=== PATIENT | female | born 1935 | race Caucasian/White ===

== ENCOUNTER 2017-01-09 20:25 | Inpatient (IN) | payer MEDICARE, OTHER ==
[~2017-01-09] VITALS: Ht 157.5 cm; Wt 63.5 kg
[2017-01-09] MEDS ORDERED: CLON0.2T PO (20:56)
[2017-01-09] MEDS ORDERED: SERT25TA PO (20:56)
[2017-01-09] MEDS ORDERED: ACET325T53 PO (20:56)
[2017-01-09] MEDS ORDERED: FAMO20TA8 PO (20:56)
[2017-01-09] MEDS ORDERED: DOCU100C36 PO (20:56)
[2017-01-09] MEDS ORDERED: BISA10SU8 RC (20:56)
[2017-01-09] MEDS ORDERED: ATOR20TA PO (20:56)
[2017-01-09] MEDS ORDERED: LORA0.5T PO (20:56)
[2017-01-09] MEDS ORDERED: HYDR-3974 PO (20:56)
[2017-01-09] MEDS ORDERED: DEXT1CAP3 PO (20:56)
[2017-01-09] MEDS ORDERED: ONDA4TAB8 PO (20:56)
[2017-01-09] MEDS ORDERED: AMLO5TAB2 PO (20:56)
[2017-01-09] MEDS ORDERED: ZOLP5TAB8 PO (20:56)
[2017-01-09] MEDS ORDERED: CARV12.52 PO (20:56)
[2017-01-09] MEDS ORDERED: CLOP75TA15 PO (20:56)
[2017-01-09] MEDS ORDERED: HYDR-4209 PO (20:56)
[2017-01-09] MEDS ORDERED: MAGN400T6 PO (20:56)
[2017-01-09] MEDS ORDERED: LACT1CAP7 PO (20:56)
[2017-01-09 21:20] LABS: BASOPHILS % (AUTO) 0.4 % (0.0-2.0); EOSINOPHILS # (AUTO) 0.4 K/uL (0.0-0.7); EOSINOPHILS % (AUTO) 5.6 % (0.0-7.0); HEMOGLOBIN 11.9 G/DL (12.0-16.0); LYMPHOCYTES # (AUTO) 1.6 K/UL (0.8-4.8); LYMPHOCYTES % (AUTO) 24.9 % (20.5-51.5); MEAN CORPUSCULAR HEMOGLOBIN 27.6 UUG (27.0-31.0); MEAN CORPUSCULAR HGB CONC 32 g/dL (32.0-37.0); MEAN CORPUSCULAR VOLUME 85.7 FL (81.0-99.0); MONOCYTES # (AUTO) 0.7 K/UL (0.1-1.30); MONOCYTES % (AUTO) 11.4 % (0.0-11.0); NEUTROPHILS # (AUTO) 3.7 K/UL (1.8-8.9); NEUTROPHILS % (AUTO) 57.7 % (38.5-71.5); PLATELET COUNT (AUTO) 144 K/UL (150-450); RED BLOOD CELL COUNT(AUTO) 4.32 MIL/UL (4.2-5.4); WHITE BLOOD COUNT (AUTO) 6.4 K/UL (4.0-11.2)
[2017-01-09 21:24] LABS: CARBON DIOXIDE 30 mmol/L (21-32); CHLORIDE 99 mmol/L (98-107); CREATININE 3.5 mg/dL (0.6-1.3); GLUCOSE 143 mg/dL (74-106)
[2017-01-09 21:27] LABS: UREA NITROGEN, BLOOD 81 mg/dL (7-18)
[2017-01-09 21:29] LABS: ALANINE AMINOTRANSFERASE 37 U/L (14-59); ALKALINE PHOSPHATASE 134 U/L (50-136); ASPARTATE AMINOTRANSFERASE 18 U/L (15-37); BILIRUBIN,DIRECT 0.1 mg/dL (0.0-0.2); BILIRUBIN,TOTAL 0.3 mg/dL (0.2-1.0); LIPASE 184 U/L (73-393); TOTAL PROTEIN, SERUM 7.9 g/dL (6.4-8.2)
[2017-01-09 22:44] LABS: *BILIRUBIN,URIN NEGATIVE (NEGATIVE); *BLOOD, URINE Trace-intact (NEGATIVE); *CLARITY,URINE CLEAR (CLEAR); *COLOR,URINE YELLOW (YELLOW); *KETONES,URINE NEGATIVE (NEGATIVE); *PROTEIN,URINE NEGATIVE (NEGATIVE); *UROBILINOGEN,URINE 0.2 E.U./dl (NORMAL); LEUKOCYTE ESTERASE ,URINE NEGATIVE (NEGATIVE); NITRITE, URINE NEGATIVE (NEGATIVE); UGLUCOSE NEGATIVE (NEGATIVE)
[2017-01-09 22:46] LABS: BACTERIA,URINE NONE SEEN /HPF (NONE SEEN); RBC,URINE 0-3 /HPF (0-3); SQUAMOUS EPITHELIAL CELL,UR FEW /HPF (NONE SEEN); WBC,URINE 0-3 /HPF (0-3)
--- NOTE | 2017-01-09 22:47 | NUR ---
Report given to Felicitas HUERTA
--- NOTE | 2017-01-09 22:48 | NUR ---
Call placed to [facility], Dr. De La Fuente will be paged.
--- NOTE | 2017-01-09 22:49 | NUR ---
CHARLENE speaking with Dr. De La Fuente.
--- NOTE | 2017-01-09 23:25 | NUR ---
PT RECEIVED FROM ED VIA [facility]. DEMETRIUS SPEAKING. A/OX1. ORIENTED TO ROOM. V/S STABLE. IN NO ACUTE DISTRESS. NO S/S OF PAIN AT THIS TIME. IV INTACT AND PATENT. SINUS 62 ON THE TELE MONITOR. SAFETY MEASURES. IMPLEMENTED. BED ALARM SET. CALL LIGHT WITHIN REACH. WILL CONT TO MONITOR.
--- NOTE | 2017-01-09 23:51 | NUR ---
Pt. admitted to Telemetry , under care of Dr. Garfield De La Fuente. Dx: Acute Kidney Injury/Weakness Belongs List completed
[2017-01-10 00:12] VITALS: BP 152/71
[2017-01-10 05:30] VITALS: BP 139/62
--- NOTE | 2017-01-10 06:45 | NUR ---
END OF SHIFT NOTES. PT SLEPT WELL THROUGHOUT SHIFT. IN STABLE CONDITION. IVF INFUSING. SINUS RHYTHM ON THE TELE MONITOR. ISOLATION IN PLACE SAFETY PRECAUTION FOR GENERALIZED SKIN RASH. ALL NEEDS ATTENDED. SAFETY MAINTAINED. BED ALARM SET. CALL LIGHT WITHIN REACH.
[2017-01-10 11:08] VITALS: BP 148/78
[2017-01-10 15:08] VITALS: BP 106/52
--- NOTE | 2017-01-10 19:00 | NUR ---
Received pt resting comfortably in bed. Farsi speaking. Vitals signs WNL. IV site intact and patent. No acute distress noted. Safety measures maintained. Call light within reach. Will continue to monitor.
[2017-01-10 20:14] VITALS: BP 125/65
--- NOTE | 2017-01-10 23:30 | NUR ---
Pt had an episode of anxiety. Raised HOB to facilitate breathing. Instructed pt breathing techniques. Started to calm down but still anxious. Administered Ativan for anxiety as prescribed. Safety measures maintained. Will continue to monitor.
[2017-01-11 00:20] VITALS: BP 147/75
[2017-01-11 04:00] VITALS: BP 143/70
--- NOTE | 2017-01-11 06:12 | NUR ---
Pt slept comfortably t/o the night. VS WNL. No acute distress noted. No c/o pain. All needs attended t/o the night. Safety measures maintained. Call light within reach. Will continue to monitor.
[2017-01-11 06:31] LABS: BASOPHILS % (AUTO) 0.3 % (0.0-2.0); EOSINOPHILS # (AUTO) 0.3 K/uL (0.0-0.7); EOSINOPHILS % (AUTO) 5.7 % (0.0-7.0); HEMATOCRIT 34.5 % (37-47); HEMOGLOBIN 11.3 G/DL (12.0-16.0); LYMPHOCYTES # (AUTO) 1.7 K/UL (0.8-4.8); LYMPHOCYTES % (AUTO) 28.5 % (20.5-51.5); MEAN CORPUSCULAR HEMOGLOBIN 28.4 UUG (27.0-31.0); MEAN CORPUSCULAR HGB CONC 33 g/dL (32.0-37.0); MEAN CORPUSCULAR VOLUME 86.2 FL (81.0-99.0); MONOCYTES # (AUTO) 0.4 K/UL (0.1-1.30); MONOCYTES % (AUTO) 7.2 % (0.0-11.0); NEUTROPHILS # (AUTO) 3.6 K/UL (1.8-8.9); NEUTROPHILS % (AUTO) 58.3 % (38.5-71.5); PLATELET COUNT (AUTO) 135 K/UL (150-450)
[2017-01-11 06:46] LABS: ALANINE AMINOTRANSFERASE 32 U/L (14-59); ALKALINE PHOSPHATASE 120 U/L (50-136); ASPARTATE AMINOTRANSFERASE 17 U/L (15-37); BILIRUBIN,TOTAL 0.3 mg/dL (0.2-1.0); CARBON DIOXIDE 29 mmol/L (21-32); CHLORIDE 107 mmol/L (98-107); CHOLESTEROL 192 mg/dL (<200); GLUCOSE 121 mg/dL (74-106); HDL CHOLESTEROL 40 mg/dL (40-60); MAGNESIUM 2.4 mg/dL (1.8-2.4); PHOSPHOROUS 4.5 mg/dL (2.5-4.9); POTASSIUM 4.3 mmol/L (3.5-5.1); TOTAL PROTEIN, SERUM 7.1 g/dL (6.4-8.2); TRIGLYCERIDES 102 MG/DL (30-150); UREA NITROGEN, BLOOD 65 mg/dL (7-18)
--- NOTE | 2017-01-11 07:00 | NUR ---
Received report from shift mechanic nurse, patient in bed asleep, no evidence of distress noted, bed in low position side rails up x2.
[2017-01-11 07:07] LABS: THYROID STIMULATING HORMONE 2.737 mIU/mL (0.358-3.740)
[2017-01-11 11:14] VITALS: BP 125/69
[2017-01-11 15:14] VITALS: BP 118/67
--- NOTE | 2017-01-11 18:23 | NUR ---
Patient has been cooperative, no reports of pain/SOB/or any other complaints at this time. Bed in low position, side rails up x2.
--- NOTE | 2017-01-11 19:30 | NUR ---
SHIFT REPORT PROVIDED BY PREVIOUS SHIFT NURSE. PATIENT IN STABLE CONDITION, NO SIGNS OF DISTRESS. SAFETY AND COMFORT PROVIDED TO PATIENT.
[2017-01-11 20:00] VITALS: BP 136/69
[2017-01-12 04:36] VITALS: BP 136/73
--- NOTE | 2017-01-12 07:45 | NUR ---
PT BEDSIDE REPORT RECEIVED FROM PATHOLOGY SECRETARY/TRANSCRIPTIONIST HÉCTOR HUERTA. NO APPARENT DISTRESS NOTED AT THIS TIME. ALL SAFETY AND COMFORT MEASURES IMPLEMENTED. WILL CONTINUE TO MONITOR.
--- NOTE | 2017-01-12 08:23 | NUR ---
PT COMPLAINS OF CHEST PAIN. V/S TAKEN 173/86 P 77, O2 SAT 99 ON RA. ASSISTED WITH FARSI TRANSLATION TO ID PAIN LOCATION, AND PLACED STAT NITRO ORDER. MEDICATION ADMINISTERED AT 0833, V/S BP 182/91, P 78, 2 L O2 APPLIED VIA NC O2 SATURATION 98%. REDNESS NOTED ON RIGHT FOREARM RESEMBLING POSSIBLE ALLERGIC REACTION TO ADHESIVE TAPE OVER IV SITE. TAPE REPLACED. SECOND DOSE OF NITRO ADMINISTERED 5 MIN APART ORDERED. 0838 2ND DOSE OF NITRO ADMINISTERED AND VS TAKEN. BP 120/79, 82 PULSE, 99% O2 SAT. WILL CONTINUE TO STAY WITH PT TO MONITOR PROGRESS.
[2017-01-12 08:32] LABS: BASOPHILS % (AUTO) 0.4 % (0.0-2.0); EOSINOPHILS # (AUTO) 0.3 K/uL (0.0-0.7); EOSINOPHILS % (AUTO) 3.9 % (0.0-7.0); HEMATOCRIT 38.5 % (37-47); HEMOGLOBIN 12.5 G/DL (12.0-16.0); LYMPHOCYTES # (AUTO) 1.5 K/UL (0.8-4.8); LYMPHOCYTES % (AUTO) 19.5 % (20.5-51.5); MEAN CORPUSCULAR HEMOGLOBIN 27.6 UUG (27.0-31.0); MEAN CORPUSCULAR HGB CONC 32 g/dL (32.0-37.0); MEAN CORPUSCULAR VOLUME 85.3 FL (81.0-99.0); MONOCYTES # (AUTO) 0.4 K/UL (0.1-1.30); MONOCYTES % (AUTO) 4.8 % (0.0-11.0); NEUTROPHILS # (AUTO) 5.5 K/UL (1.8-8.9); NEUTROPHILS % (AUTO) 71.4 % (38.5-71.5); PLATELET COUNT (AUTO) 149 K/UL (150-450); RED BLOOD CELL COUNT(AUTO) 4.52 MIL/UL (4.2-5.4); WHITE BLOOD COUNT (AUTO) 7.7 K/UL (4.0-11.2)
--- NOTE | 2017-01-12 08:44 | NUR ---
OBSERVED PT DISTRESS REDUCED. TRANSLATION PHONE ATTEMPTED TO BE UTILIZED AGAIN, PT ABLE TO COMMUNICATE PAIN RELIEF PRIOR TO 3RD DOSE OF NITRO ADMINISTRATION. V/S READING 95/49, 87, 98% ON 2 l O2 NC . 12 LEAD EKG PERFORMED AT BEDSIDE. SR NOTED. MORNING MEDICATIONS ADMINISTERED. V/S TAKEN TO BE 107/69, 85, 100% O2 ON 2 L. WILL CONTINUE TO MONITOR AND ENSURE SAFETY MEASURES ARE MET.
[2017-01-12 08:48] LABS: CARBON DIOXIDE 24 mmol/L (21-32); CHLORIDE 107 mmol/L (98-107); CREATININE 2.7 mg/dL (0.6-1.3); GLUCOSE 132 mg/dL (74-106); MAGNESIUM 2.6 mg/dL (1.8-2.4); PHOSPHOROUS 3.1 mg/dL (2.5-4.9); POTASSIUM 5.1 mmol/L (3.5-5.1); UREA NITROGEN, BLOOD 55 mg/dL (7-18)
[2017-01-12 11:46] VITALS: BP 134/70
[2017-01-12] MEDS ORDERED: ACET325T53 PO (12:28)
[2017-01-12] MEDS ORDERED: HYDR-3326 PO (12:28)
[2017-01-12] MEDS ORDERED: BISA10SU12 RC (12:43)
[2017-01-12 15:17] VITALS: BP 121/64
[2017-01-12 20:00] VITALS: BP 141/66
[2017-01-13 04:00] VITALS: BP 151/76
--- NOTE | 2017-01-13 06:00 | NUR ---
PATIENT SLEPT WELL, IN NO ACUTE DISTRESS. PT NO C/O OF SOB OR CHEST PAIN. WILL CONTINUE TO MONITOR. CALL LIGHT WITHIN REACH, BED ALARM ON.
[2017-01-13 07:44] LABS: ALANINE AMINOTRANSFERASE 20 U/L (14-59); ALKALINE PHOSPHATASE 111 U/L (50-136); ASPARTATE AMINOTRANSFERASE 12 U/L (15-37); BILIRUBIN,TOTAL 0.3 mg/dL (0.2-1.0); CARBON DIOXIDE 28 mmol/L (21-32); CHLORIDE 109 mmol/L (98-107); CREATININE 2.6 mg/dL (0.6-1.3); GLUCOSE 123 mg/dL (74-106); MAGNESIUM 2.1 mg/dL (1.8-2.4); PHOSPHOROUS 3.6 mg/dL (2.5-4.9); POTASSIUM 4.4 mmol/L (3.5-5.1); TOTAL PROTEIN, SERUM 6.8 g/dL (6.4-8.2); UREA NITROGEN, BLOOD 47 mg/dL (7-18)
[2017-01-13 07:47] LABS: BASOPHILS % (AUTO) 0.5 % (0.0-2.0); EOSINOPHILS # (AUTO) 0.3 K/uL (0.0-0.7); EOSINOPHILS % (AUTO) 5.2 % (0.0-7.0); HEMATOCRIT 33.6 % (31.2-41.9); HEMOGLOBIN 11.4 g/dL (10.9-14.3); LYMPHOCYTES # (AUTO) 1.6 K/uL (20.0-40.0); MEAN CORPUSCULAR HEMOGLOBIN 29.2 uug (24.7-32.8); MEAN CORPUSCULAR HGB CONC 34 g/dL (32.3-35.6); MEAN CORPUSCULAR VOLUME 86.3 fL (75.5-95.3); MONOCYTES # (AUTO) 0.4 K/uL (2.0-10.0); MONOCYTES % (AUTO) 6.4 % (0.0-11.0); NEUTROPHILS # (AUTO) 3.2 K/uL (1.8-8.9); NEUTROPHILS % (AUTO) 58.9 % (38.5-71.5); PLATELET COUNT (AUTO) 121 K/uL (179-408); RED BLOOD CELL COUNT(AUTO) 3.89 MIL/uL (3.63-4.92)
[2017-01-13 08:00] LABS: WHITE BLOOD COUNT (AUTO) 5.5 K/uL (3.8-11.8)
[2017-01-13 11:14] VITALS: BP 132/66
--- NOTE | 2017-01-13 11:26 | NUR ---
Patient will be discharged to [facility]. Phone number . Family aware and agreeable with plan. Patient will be under the care of Dr. Morales. Dr. Jan Shay has discharge patient and will complete orders.
--- NOTE | 2017-01-13 14:37 | NUR ---
D/C NOTE SET FOR D/C ABMULANCE HERE TO PICK HER UP. [facility]. VSS. REPORT GIVEN TO CLAUDIA HUERTA. HL REMOVED INTACT #20G . PT ASSISTED TO PUT HER CLOTHES ON. SHE LEFT WITH HER CLOTHES ON. DENTURES IN HER MOUTH SKIN INTACT
[2017-01-13 15:12] VITALS: BP 133/76
== END 2017-01-13 14:45 | DRG 682 ==
LOC: ER 20:29 → TELE 23:18 → MED 01-11 14:30
PROVIDERS: ADMIT Nurse Practitioner Acute Care; ATTEND Nurse Practitioner Acute Care
DX: N17.0 Acute kidney failure with tubular necrosis (principal); G93.40 Encephalopathy, unspecified; D68.59 Other primary thrombophilia; E11.22 Type 2 diabetes mellitus with diabetic chronic kidney disease; E11.65 Type 2 diabetes mellitus with hyperglycemia; M84.48XA Pathological fracture, other site, initial encounter for fracture; W06.XXXA Fall from bed, initial encounter; N18.9 Chronic kidney disease, unspecified; E86.0 Dehydration; S09.90XA Unspecified injury of head, initial encounter; I12.9 Hypertensive chronic kidney disease with stage 1 through stage 4 chronic kidney disease, or unspecified chronic kidney disease; Z79.02 Long term (current) use of antithrombotics/antiplatelets; Z79.899 Other long term (current) drug therapy; I69.319 Unspecified symptoms and signs involving cognitive functions following cerebral infarction; F01.50 Vascular dementia, unspecified severity, without behavioral disturbance, psychotic disturbance, mood disturbance, and anxiety; E78.5 Hyperlipidemia, unspecified; J32.8 Other chronic sinusitis; Z74.09 Other reduced mobility; I25.10 Atherosclerotic heart disease of native coronary artery without angina pectoris; Y92.122 Bedroom in nursing home as the place of occurrence of the external cause; K56.41 Fecal impaction; N28.1 Cyst of kidney, acquired; M81.0 Age-related osteoporosis without current pathological fracture; F41.9 Anxiety disorder, unspecified; F32.9 Major depressive disorder, single episode, unspecified; D64.9 Anemia, unspecified; M17.12 Unilateral primary osteoarthritis, left knee
CPT/HCPCS: 36415; 70030-TC; 70450; 71010; 73700; 76770; 83690; 83735; 84100; 84443; 85025; 87086; 93005; A4663; J7030

== ENCOUNTER 2018-10-23 14:01 | Inpatient (IN) | payer MEDICARE, MEDICAID ==
[~2018-10-23] VITALS: Ht 152.4 cm; Wt 45.4 kg
[~2018-10-23 14:01] MED LIST: ACET325T53 PO; AMLO5TAB9 PO; ATOR20TA PO; BISA10SU12 RC; BISA10SU95 RC; CARV12.52 PO; CLON0.2T PO; CLOP75TA15 PO; DEXT1CAP3 PO; DOCU100C36 PO; FAMO20TA8 PO; HYDR-3326 PO; HYDR-4209 PO; LACT1CAP7 PO; LORA0.5T PO; MAGN400T6 PO; ONDA4TAB8 PO; SERT25TA PO; ZOLP5TAB8 PO
--- NOTE | 2018-10-23 14:13 | NUR ---
PT IS IN ROOM #1B. DR SCHMIDT EVALUATED THE PT.
[2018-10-23] MEDS ORDERED: DEXT1CAP3 PO (14:35)
[2018-10-23] MEDS ORDERED: QUET25TA PO (14:35)
[2018-10-23] MEDS ORDERED: OXCA150T5 PO (14:35)
[2018-10-23 15:52] LABS: BASOPHILS # (AUTO) 0.1 K/uL (0.0-8.0); BASOPHILS % (AUTO) 0.9 % (0.0-2.0); EOSINOPHILS # (AUTO) 0.1 K/uL (0.0-0.7); EOSINOPHILS % (AUTO) 1.3 % (0.0-7.0); HEMATOCRIT 39.5 % (31.2-41.9); HEMOGLOBIN 12.7 g/dL (10.9-14.3); LYMPHOCYTES # (AUTO) 1.6 K/uL (20.0-40.0); LYMPHOCYTES % (AUTO) 20.3 % (20.5-51.5); MEAN CORPUSCULAR HGB CONC 32 g/dL (32.3-35.6); MEAN CORPUSCULAR VOLUME 87.1 fL (75.5-95.3); MONOCYTES # (AUTO) 0.4 K/uL (2.0-10.0); MONOCYTES % (AUTO) 5.4 % (0.0-11.0); NEUTROPHILS # (AUTO) 5.9 K/uL (1.8-8.9); NEUTROPHILS % (AUTO) 72.1 % (38.5-71.5); PLATELET COUNT (AUTO) 178 K/uL (179-408); RED BLOOD CELL COUNT(AUTO) 4.54 MIL/uL (3.63-4.92); WHITE BLOOD COUNT (AUTO) 8.1 K/uL (3.8-11.8)
[2018-10-23 15:59] LABS: CARBON DIOXIDE 25 mmol/L (21-32); CHLORIDE 107 mmol/L (98-107); CREATININE 3.3 mg/dL (0.6-1.3); GLUCOSE 276 mg/dL (74-106); POTASSIUM 4.5 mmol/L (3.5-5.1); UREA NITROGEN, BLOOD 79 mg/dL (7-18)
[2018-10-23 16:05] LABS: ALANINE AMINOTRANSFERASE 27 U/L (14-59); ALKALINE PHOSPHATASE 130 U/L (50-136); ASPARTATE AMINOTRANSFERASE 14 U/L (15-37); BILIRUBIN,DIRECT 0.1 mg/dL (0.0-0.2); BILIRUBIN,TOTAL 0.3 mg/dL (0.2-1.0); LIPASE 68 U/L (73-393); TOTAL PROTEIN, SERUM 8.3 g/dL (6.4-8.2)
[2018-10-23] MEDS ORDERED: IV NORMAL SALINE 500 ML BAG IV ONE (17:45)
--- NOTE | 2018-10-23 18:29 | NUR ---
REPORT WAS GIVEN TO MAINTENANCE SCHEDULER. PT WAS TRANSFERED TO ROOM #314.
--- NOTE | 2018-10-23 19:00 | NUR ---
Received patient in bed awake, A&Ox1, Farsi speaking. Great grand nephew at bedside. Past medical hx obtained from family member and also some information were obtained from [facility] papers. Belongings list and belongings brought w/ patient. Heplock gauge #18 on right upper arm, intact and patent. Safety measures initiated, bed is low and locked. Call light within reach. Will continue w/ admission process
[2018-10-23 19:05] VITALS: BP 165/83
[2018-10-23 20:00] VITALS: BP 166/79
[2018-10-24 00:10] VITALS: BP 163/92
[2018-10-24] MEDS ORDERED: CLONIDINE HCL 0.2 MG TABLET PO PRN (00:15)
--- NOTE | 2018-10-24 00:20 | NUR ---
Swallow eval done, noted w/ episode of slight cough but was able to swallow thickened water and pudding. After administering PRN Clonidine, patient was noted w/ more coughing. Will keep patient on NPO, speech and swallow eval in AM. Will continue to monitor
[2018-10-24 04:00] VITALS: BP 143/82
[2018-10-24 05:26] LABS: *BILIRUBIN,URIN NEGATIVE (NEGATIVE); *BLOOD, URINE NEGATIVE (NEGATIVE); *COLOR,URINE YELLOW (YELLOW); *KETONES,URINE NEGATIVE (NEGATIVE); *UROBILINOGEN,URINE 0.2 E.U./dl (NORMAL); LEUKOCYTE ESTERASE ,URINE NEGATIVE (NEGATIVE); NITRITE, URINE NEGATIVE (NEGATIVE); UGLUCOSE NEGATIVE (NEGATIVE)
[2018-10-24 05:28] LABS: *CLARITY,URINE HAZY (CLEAR)
[2018-10-24 05:56] LABS: BACTERIA,URINE NONE SEEN /HPF (NONE SEEN); MUCUS,URINE FEW /LPF (0-FEW); RBC,URINE 0-3 /HPF (0-3); SQUAMOUS EPITHELIAL CELL,UR FEW /HPF (NONE SEEN); URINE AMORPHOUS URATE FEW /HPF; WBC,URINE 0-3 /HPF (0-3)
[2018-10-24 06:17] LABS: CARBON DIOXIDE 26 mmol/L (21-32); CHLORIDE 111 mmol/L (98-107); CREATININE 3.1 mg/dL (0.6-1.3); GLUCOSE 220 mg/dL (74-106); POTASSIUM 4.3 mmol/L (3.5-5.1); UREA NITROGEN, BLOOD 73 mg/dL (7-18)
[2018-10-24 06:31] LABS: THYROID STIMULATING HORMONE 1.402 mIU/mL (0.358-3.740)
--- NOTE | 2018-10-24 06:33 | NUR ---
Patient slept well during shift. No signs of acute distress noted. Neuro checks done Q4H. Straight cath done to get UA. Turned and repositioned Q2H. Safety measures given.
[2018-10-24] MEDS: BLOOD SUGAR DIAGNOSTIC 1 EACH STRIP VI SCH ×4 (06:43→20:29)
[2018-10-24] MEDS: PANTOPRAZOLE SODIUM 40 MG TABLET.DR PO SCH (06:46)
[2018-10-24 06:52] LABS: BASOPHILS % (AUTO) 0.3 % (0.0-2.0); EOSINOPHILS # (AUTO) 0.1 K/uL (0.0-0.7); EOSINOPHILS % (AUTO) 1.5 % (0.0-7.0); HEMATOCRIT 37.1 % (31.2-41.9); HEMOGLOBIN 12.2 g/dL (10.9-14.3); LYMPHOCYTES # (AUTO) 1.3 K/uL (20.0-40.0); LYMPHOCYTES % (AUTO) 19.5 % (20.5-51.5); MEAN CORPUSCULAR HEMOGLOBIN 28.6 uug (24.7-32.8); MEAN CORPUSCULAR HGB CONC 33 g/dL (32.3-35.6); MEAN CORPUSCULAR VOLUME 86.8 fL (75.5-95.3); MONOCYTES # (AUTO) 0.4 K/uL (2.0-10.0); MONOCYTES % (AUTO) 5.8 % (0.0-11.0); NEUTROPHILS % (AUTO) 72.9 % (38.5-71.5); PLATELET COUNT (AUTO) 172 K/uL (179-408); RED BLOOD CELL COUNT(AUTO) 4.27 MIL/uL (3.63-4.92); WHITE BLOOD COUNT (AUTO) 6.9 K/uL (3.8-11.8)
[2018-10-24] MEDS ORDERED: ASPIRIN EC 81 MG TABLET.DR PO SCH (09:00)
[2018-10-24] MEDS ORDERED: DOCUSATE SODIUM 100 MG CAPSULE PO SCH (09:00)
[2018-10-24 11:35] VITALS: BP 152/80
[2018-10-24] MEDS: AMLODIPINE 5 MG TABLET NG SCH (12:02)
[2018-10-24] MEDS: LOSARTAN POTASSIUM 50 MG TABLET NG SCH (12:03)
[2018-10-24] MEDS ORDERED: GLUCERNA 1.2 1000ML LIQUID GT PRN (12:30)
[2018-10-24 14:56] VITALS: BP 123/61
--- NOTE | 2018-10-24 16:55 | NUR ---
NG tube order received. NG tube placed. Chest X-ray ordered to confirm placement. Family visiting assisted translation for understanding purpose and need to keep in place. Will continue to monitor and follow up.
--- NOTE | 2018-10-24 18:59 | NUR ---
Pt received, assessed, AOx1-2, Farsi speaking, able to make needs known. Denies pain or discomfort, no SOB on RA. Neuro checks Q4 done, stroke education provided, signed and placed in chart. Pt seen by ST for swallow evaluation, failed. Pt seen by RESERVATIONS AGENT, new orders received and implemented. Diet changed from NPO status to NGT pending Chest X-ray confirmation of placement. Spoke with family and friend visited at bedside. IV in right arm flushed and patent. VSS. All safety and comfort measures implemented. Call light and personal items placed within reach. Will continue to monitor and endorse to oncoming shift leader
--- NOTE | 2018-10-24 20:00 | NUR ---
Received patient laying in bed. No acute distress noted. Patient is A/O x 2 with periods of confusions, mainly Farsi speaking but able to make needs known. In room air. TELE SR at 77. NGT in place. Tube feeding started. C/O pain in her throat. Tylenol given. Noted scratches in her back. Noted lump on her right upper arm, near armpit. MD is aware. Safety initiated. Call light within reach. Will continue to monitor.
[2018-10-24 20:21] VITALS: BP 150/78
[2018-10-24] MEDS: ACETAMINOPHEN 325 MG TABLET PO PRN (20:29)
[2018-10-24] MEDS ORDERED: ACETAMINOPHEN 325 MG TABLET PO SCH ×2 (21:00)
[2018-10-24] MEDS ORDERED: ATORVASTATIN 10 MG TABLET PO SCH (22:30)
[2018-10-25 00:27] VITALS: BP 154/82
[2018-10-25] MEDS: ACETAMINOPHEN 325 MG TABLET PO PRN (03:42)
[2018-10-25 04:00] VITALS: BP 154/84
[2018-10-25] MEDS ORDERED: ACETAMINOPHEN 325 MG TABLET NG PRN (04:15)
[2018-10-25] MEDS ORDERED: CLONIDINE HCL 0.2 MG TABLET NG PRN (04:15)
[2018-10-25] MEDS: BLOOD SUGAR DIAGNOSTIC 1 EACH STRIP VI SCH ×4 (06:55→23:20)
[2018-10-25] MEDS: PANTOPRAZOLE SODIUM 40 MG TABLET.DR PO SCH (06:55)
--- NOTE | 2018-10-25 07:10 | NUR ---
PATIENT AOX1-2. NEURO CHECKS Q4 HRS. PATIENT HAS RIGHT SIDE WEAKNESS. NG TUBE IN PLACE. NO RESIDUAL. BED IN LOCKED POSITION AND LOW. CALL LIGHT IN REACH. WILL CONTINUE TO MONITOR.
--- NOTE | 2018-10-25 07:41 | NUR ---
No changes t/o shift. Patient c/o pain in the throat. Tylenol given with some relief. Vital signs stable. Remains on room air. Denies SOB and Chest Pain. NGT in place with feeding, Glucerna at 30 cc/hr. Tolerated it well t/o shift. Safety and comfort measures maintained t/o shift. All meds given as ordered. All needs met.
[2018-10-25] MEDS: DOCUSATE SODIUM 100 MG/10 ML LIQUID UDC NG SCH (10:22)
[2018-10-25] MEDS: AMLODIPINE 5 MG TABLET NG SCH (10:23)
[2018-10-25] MEDS: LOSARTAN POTASSIUM 50 MG TABLET NG SCH (10:23)
[2018-10-25] MEDS: ASPIRIN 81 MG TAB.CHEW NG SCH (10:24)
[2018-10-25] MEDS ORDERED: DEXTROSE 50% 50 ML DISP.SYRIN IV PRN (11:15)
[2018-10-25] MEDS ORDERED: CLOPIDOGREL 75 MG TABLET PO SCH (13:15)
[2018-10-25] MEDS: INSULIN REGULAR, HUMAN 300 UNIT/3 ML VIAL SQ PRN ×2 (14:37→23:29)
--- NOTE | 2018-10-25 14:42 | NUR ---
TEXTED DR. BRAVO FOR MRI APPROVAL.
[2018-10-25 15:18] VITALS: BP 160/82
--- NOTE | 2018-10-25 19:00 | NUR ---
REPORT GIVEN TO ONCOMING NURSE. PATIENT IN STABLE CONDITION. ALL NEEDS MET AT THIS TIME.
[2018-10-25 20:00] VITALS: BP 149/90
--- NOTE | 2018-10-25 20:00 | NUR ---
PATIENT RECEIVED AWAKE AND SITTING UP IN BED. NO SIGNS OR SYMPTOMS OF ACUTE DISTRESS OR DISCOMFORT NOTED OR OBSERVED. ALL SAFETY AND FALL PRECAUTION MEASURES ARE IN PLACE. CALL LIGHT AND PERSONAL ITEMS ARE WITHIN REACH AT ALL TIMES. WILL CONTINUE TO MONITOR.
[2018-10-25] MEDS ORDERED: ATORVASTATIN 10 MG TABLET NG SCH (21:00)
--- NOTE | 2018-10-25 23:35 | NUR ---
FSBS AT 2330 WAS 214, NOT 242, WITH THE SAME SLIDING SCALE @ 4 UNITS. SITE CHANGED FROM RIGHT DELTOID TO RIGHT LOWER QUADRANT DUE TO NO BP/NO BLOOD DRAWS ON RIGHT ARM.
[2018-10-26] VITALS (7 sets, daily range): BP systolic 133–168; BP diastolic 76–104
--- NOTE | 2018-10-26 04:18 | NUR ---
Notified by DRY CLEANER HAND that pt's 399 BP is 168/104 HR 108. Gave pt prescribed catapres @ 0.2 mg via ngt. Pt tolerated well. Also provided mouth care.
--- NOTE | 2018-10-26 05:00 | NUR ---
PATIENT SLEPT INTERMITTENTLY THROUGHOUT NIGHT WITH NO S/S OF ACUTE DISTRESS OR DISCOMFORT NOTED OR OBSERVED. PATIENT HAS BEEN NPO SINCE MIDNIGHT EXCEPT FOR ADMINISTRATION OF CATAPRES DUE TO ELEVATED BP. ALL SAFETY AND FALL PRECAUTION MEASURES REMAIN IN PLACE. CALL LIGHT AND PERSONAL ITEMS ARE WITHIN REACH AT ALL TIMES.
[2018-10-26] MEDS: BLOOD SUGAR DIAGNOSTIC 1 EACH STRIP VI SCH ×4 (05:39→17:21)
--- NOTE | 2018-10-26 06:01 | NUR ---
RETAKE OF BP REFLECTS 137/68. CATAPRES EFFECTIVE.
[2018-10-26 06:28] LABS: BASOPHILS % (AUTO) 0.3 % (0.0-2.0); EOSINOPHILS # (AUTO) 0.1 K/uL (0.0-0.7); EOSINOPHILS % (AUTO) 1.2 % (0.0-7.0); HEMATOCRIT 39.3 % (31.2-41.9); HEMOGLOBIN 12.9 g/dL (10.9-14.3); LYMPHOCYTES # (AUTO) 1.3 K/uL (20.0-40.0); LYMPHOCYTES % (AUTO) 14.2 % (20.5-51.5); MEAN CORPUSCULAR HEMOGLOBIN 28.7 uug (24.7-32.8); MEAN CORPUSCULAR HGB CONC 33 g/dL (32.3-35.6); MEAN CORPUSCULAR VOLUME 87.3 fL (75.5-95.3); MONOCYTES # (AUTO) 0.6 K/uL (2.0-10.0); MONOCYTES % (AUTO) 6.4 % (0.0-11.0); NEUTROPHILS # (AUTO) 7.1 K/uL (1.8-8.9); NEUTROPHILS % (AUTO) 77.9 % (38.5-71.5); PLATELET COUNT (AUTO) 203 K/uL (179-408); WHITE BLOOD COUNT (AUTO) 9.2 K/uL (3.8-11.8)
[2018-10-26] MEDS: PANTOPRAZOLE SODIUM 40 MG TABLET.DR PO SCH (06:29)
[2018-10-26 06:49] LABS: ALANINE AMINOTRANSFERASE 60 U/L (14-59); ALKALINE PHOSPHATASE 122 U/L (50-136); ASPARTATE AMINOTRANSFERASE 45 U/L (15-37); BILIRUBIN,TOTAL 0.4 mg/dL (0.2-1.0); CARBON DIOXIDE 26 mmol/L (21-32); CHLORIDE 112 mmol/L (98-107); CREATININE 2.5 mg/dL (0.6-1.3); GLUCOSE 157 mg/dL (74-106); MAGNESIUM 2.5 mg/dL (1.8-2.4); PHOSPHOROUS 3.6 mg/dL (2.5-4.9); TOTAL PROTEIN, SERUM 7.9 g/dL (6.4-8.2); UREA NITROGEN, BLOOD 69 mg/dL (7-18)
[2018-10-26] MEDS ORDERED: SIMETHICONE 40 MG/0.6 ML, 30ML BOTTLE MC ONE (07:27)
[2018-10-26] MEDS ORDERED: IRR STERIL WATER FOR IRR 1000 ML BOTTLE IR ONE (07:27)
[2018-10-26] MEDS ORDERED: IV NORMAL SALINE 1000 ML BAG IV ONE (07:27)
[2018-10-26] MEDS ORDERED: PROPOFOL 200 MG/20 ML BOTTLE IV ONE (07:27)
[2018-10-26] MEDS ORDERED: LIDOCAINE-MPF 2% 5 ML VIAL MC ONE (07:27)
[2018-10-26] MEDS: LOSARTAN POTASSIUM 50 MG TABLET NG SCH (09:39)
[2018-10-26] MEDS: AMLODIPINE 5 MG TABLET NG SCH (09:39)
[2018-10-26] MEDS: ASPIRIN 81 MG TAB.CHEW NG SCH (09:40)
[2018-10-26] MEDS: DOCUSATE SODIUM 100 MG/10 ML LIQUID UDC NG SCH (09:40)
[2018-10-26] MEDS ORDERED: CLINDAMYCIN PHOSPHATE 600 MG/4 ML VIAL ONE (10:56)
[2018-10-26] MEDS ORDERED: IV D5W 1000ML 1,000 ML IV PRN (13:15)
[2018-10-26] MEDS: INSULIN REGULAR, HUMAN 300 UNIT/3 ML VIAL SQ PRN ×2 (13:46→17:15)
[2018-10-26] MEDS: ACETAMINOPHEN 325 MG TABLET GT PRN ×2 (17:40→23:51)
[2018-10-26] MEDS: GLUCERNA 1.2 1000ML LIQUID GT PRN ×2 (18:15→19:49)
--- NOTE | 2018-10-26 19:30 | NUR ---
VERIFIED GT PLACEMENT
--- NOTE | 2018-10-26 19:51 | NUR ---
RECEIVED PATIENT AWAKE IN BED, RESTING COMFORTABLY WITH FAMILY AT BEDSIDE. PATIENT'S FAMILY STATED SHE IS HAVING SOME PAIN FROM PEG PLACEMENT TODAY. I ADVISED I WILL PROVIDE PATIENT PRESCRIBED PAIN RELIEF SOON I CAN, PER ORDER FROM MD. SAFETY AND FALL PRECAUTIONS ARE IN PLACE. CALL LIGHT AND PERSONAL ITEMS ARE WITHIN REACH AT ALL TIMES. WILL CONTINUE TO MONITOR.
[2018-10-26] MEDS: ATORVASTATIN 10 MG TABLET GT SCH (21:11)
--- NOTE | 2018-10-27 | NUR ---
CHECKED GT RESIDUAL, NONE RECEIVED. FLUSHED WITH 30cc WATER AND INCREASED GLUCERNA TO 35cc/HR
[2018-10-27] MEDS: BLOOD SUGAR DIAGNOSTIC 1 EACH STRIP VI SCH ×4 (00:03→17:20)
[2018-10-27] MEDS: INSULIN REGULAR, HUMAN 300 UNIT/3 ML VIAL SQ PRN ×4 (00:06→17:23)
--- NOTE | 2018-10-27 02:59 | NUR ---
CHECKED GT RESIDUAL, NONE RECEIVED. FLUSHED GT WITH 30cc WATER AND INCREASED GLUCERNA TO 40cc/HR. WILL CONTINUE TO MONITOR.
--- NOTE | 2018-10-27 04:00 | NUR ---
NOTIFIED BY BAND SAW FILER THAT PT'S BP IS 156/107. BP IS NOT WITHIN PARAMETERS FOR 0.2mg CLONIDINE. PT IS S/P PEG PLACEMENT AND MAY BE EXPERIENCING PAIN, BUT IS UNABLE TO VERBALIZE. PROVIDED COMFORT MEASURES: LOOSENED ABDOMINAL BINDER, APPLIED ICE PACK, WRAPPED IN WASH CLOTH TO PROTECT SKIN, AND PROVIDED CALM ENVIRONMENT. WILL CONTINUE TO MONITOR.
--- NOTE | 2018-10-27 04:30 | NUR ---
CHECKED GT RESIDUAL NONE FOUND. FLUSHED WITH 30cc WATER AND RESTARTED GLUCERNA AT 45mL/HR.
[2018-10-27 04:59] VITALS: BP 156/103
[2018-10-27] MEDS: PANTOPRAZOLE ORAL SUSPENSION 40 MG SUSPDR.PKT GT SCH (05:35)
[2018-10-27] MEDS: ACETAMINOPHEN 325 MG TABLET GT PRN ×2 (06:17→16:32)
[2018-10-27] MEDS: CLONIDINE HCL 0.2 MG TABLET GT PRN (06:22)
--- NOTE | 2018-10-27 06:25 | NUR ---
COMMUTATOR PRESSER RECHECKED PT'S BP S/P COMFORT MEASURES AND BP IS NOW 170/96. GAVE PT PRESCRIBED 0.2mg CLONIDINE VIA GT. WILL CONTINUE TO MONITOR.
--- NOTE | 2018-10-27 06:45 | NUR ---
PATIENT SLEPT INTERMITTENTLY THROUGHOUT NIGHT. PATIENT'S PAIN WAS ADDRESSED WITH PRESCRIBED TYLENOL @ 650mg VIA GT AND ICE PACK APPLIED TO ABDOMEN. ORAL CARE PROVIDED AND TOLERATED WELL. SAFETY AND FALL PRECAUTION MEASURES REMAIN IN PLACE. CALL LIGHT AND PERSONAL ITEMS REMAIN WITHIN REACH AT ALL TIMES.
[2018-10-27 07:18] LABS: CARBON DIOXIDE 28 mmol/L (21-32); CHLORIDE 110 mmol/L (98-107); CREATININE 2.4 mg/dL (0.6-1.3); GLUCOSE 256 mg/dL (74-106); MAGNESIUM 2.4 mg/dL (1.8-2.4); PHOSPHOROUS 3.5 mg/dL (2.5-4.9); POTASSIUM 3.9 mmol/L (3.5-5.1); UREA NITROGEN, BLOOD 71 mg/dL (7-18)
[2018-10-27 08:02] LABS: BASOPHILS % (AUTO) 0.3 % (0.0-2.0); EOSINOPHILS % (AUTO) 0.2 % (0.0-7.0); HEMATOCRIT 37.7 % (31.2-41.9); LYMPHOCYTES # (AUTO) 1.3 K/uL (20.0-40.0); MEAN CORPUSCULAR HGB CONC 32 g/dL (32.3-35.6); MEAN CORPUSCULAR VOLUME 87.7 fL (75.5-95.3); MONOCYTES # (AUTO) 0.6 K/uL (2.0-10.0); MONOCYTES % (AUTO) 4.9 % (0.0-11.0); NEUTROPHILS # (AUTO) 9.9 K/uL (1.8-8.9); NEUTROPHILS % (AUTO) 83.6 % (38.5-71.5); PLATELET COUNT (AUTO) 172 K/uL (179-408)
[2018-10-27 08:03] LABS: WHITE BLOOD COUNT (AUTO) 11.8 K/uL (3.8-11.8)
[2018-10-27] MEDS ORDERED: LOSARTAN POTASSIUM 50 MG TABLET GT SCH (09:00)
[2018-10-27] MEDS: ASPIRIN 81 MG TAB.CHEW GT SCH (09:20)
[2018-10-27] MEDS: AMLODIPINE 5 MG TABLET GT SCH (09:32)
[2018-10-27] MEDS: CLOPIDOGREL 75 MG TABLET GT SCH (09:33)
[2018-10-27] MEDS: LOSARTAN POTASSIUM 50 MG TABLET GT SCH ×2 (09:33→16:33)
[2018-10-27] MEDS: DOCUSATE SODIUM 100 MG/10 ML LIQUID UDC GT SCH (09:33)
[2018-10-27 09:47] VITALS: BP 175/99
--- NOTE | 2018-10-27 09:55 | NUR ---
Axillary temperature 100.9 degrees Fahrenheit. Removed excess linen. Cooling measures applied. Kvng Jasso RN
[2018-10-27 11:08] VITALS: BP 155/97
[2018-10-27 13:30] LABS: *BILIRUBIN,URIN NEGATIVE (NEGATIVE); *BLOOD, URINE 2+ (NEGATIVE); *CLARITY,URINE CLOUDY (CLEAR); *COLOR,URINE YELLOW (YELLOW); *KETONES,URINE NEGATIVE (NEGATIVE); *UROBILINOGEN,URINE 0.2 E.U./dl (NORMAL); LEUKOCYTE ESTERASE ,URINE 3+ (NEGATIVE); NITRITE, URINE POSITIVE (NEGATIVE); PH,URINE 5.5 (5.0-8.0); UGLUCOSE NEGATIVE (NEGATIVE)
[2018-10-27 13:46] LABS: BACTERIA,URINE MANY /HPF (NONE SEEN); SQUAMOUS EPITHELIAL CELL,UR MODERATE /HPF (NONE SEEN); WBC,URINE TNTC /HPF (0-3)
[2018-10-27 13:48] LABS: MUCUS,URINE MODERATE /LPF (0-FEW)
[2018-10-27 15:19] VITALS: BP 149/88
[2018-10-27] MEDS ORDERED: FLEET ENEMA 133 ML BOTTLE RC ONE (17:00)
[2018-10-27] MEDS ORDERED: MAGNESIUM CITRATE 296 ML BOTTLE GT ONE (17:00)
--- NOTE | 2018-10-27 19:11 | NUR ---
Patient reposition. Check for bowel movement. Pending bowel movement after given treatment for constipation. Kvng Jasso RN
[2018-10-27 20:13] VITALS: BP 110/66
[2018-10-27] MEDS: ATORVASTATIN 10 MG TABLET GT SCH (20:15)
[2018-10-27] MEDS: GLUCERNA 1.2 1000ML LIQUID GT PRN (22:00)
[2018-10-28] MEDS: BLOOD SUGAR DIAGNOSTIC 1 EACH STRIP VI SCH ×5 (00:09→23:49)
[2018-10-28] MEDS: INSULIN REGULAR, HUMAN 300 UNIT/3 ML VIAL SQ PRN ×5 (00:10→23:52)
[2018-10-28] MEDS: PANTOPRAZOLE ORAL SUSPENSION 40 MG SUSPDR.PKT GT SCH (05:04)
[2018-10-28] MEDS: ACETAMINOPHEN 325 MG TABLET GT PRN ×3 (05:04→20:06)
[2018-10-28 05:07] VITALS: BP 131/77
[2018-10-28 06:39] LABS: BASOPHILS % (AUTO) 0.2 % (0.0-2.0); EOSINOPHILS % (AUTO) 0.1 % (0.0-7.0); HEMATOCRIT 35.9 % (31.2-41.9); HEMOGLOBIN 11.8 g/dL (10.9-14.3); LYMPHOCYTES # (AUTO) 1.6 K/uL (20.0-40.0); LYMPHOCYTES % (AUTO) 9.9 % (20.5-51.5); MEAN CORPUSCULAR HEMOGLOBIN 28.8 uug (24.7-32.8); MEAN CORPUSCULAR HGB CONC 33 g/dL (32.3-35.6); MEAN CORPUSCULAR VOLUME 87.4 fL (75.5-95.3); MONOCYTES # (AUTO) 0.9 K/uL (2.0-10.0); MONOCYTES % (AUTO) 5.5 % (0.0-11.0); NEUTROPHILS % (AUTO) 84.3 % (38.5-71.5); PLATELET COUNT (AUTO) 172 K/uL (179-408); WHITE BLOOD COUNT (AUTO) 16.6 K/uL (3.8-11.8)
[2018-10-28 06:54] LABS: CARBON DIOXIDE 30 mmol/L (21-32); CHLORIDE 111 mmol/L (98-107); CREATININE 2.7 mg/dL (0.6-1.3); GLUCOSE 214 mg/dL (74-106); PHOSPHOROUS 3.5 mg/dL (2.5-4.9); POTASSIUM 4.6 mmol/L (3.5-5.1)
--- NOTE | 2018-10-28 06:58 | NUR ---
END OF SHIFT REPORT Pt rested well in between care; no fever overnight; attempted to do incentive spirometer; pt more alert; incontince care done; continue to monitor; continue plan of care.
[2018-10-28 07:12] LABS: MAGNESIUM 4.5 mg/dL (1.8-2.4); UREA NITROGEN, BLOOD 82 mg/dL (7-18)
--- NOTE | 2018-10-28 07:25 | NUR ---
MG 4.5 BUN 82; endorsed to AM RN to relay to AM MD.
[2018-10-28 08:47] VITALS: BP 129/76
[2018-10-28] MEDS: ASPIRIN 81 MG TAB.CHEW GT SCH (08:58)
[2018-10-28] MEDS: DOCUSATE SODIUM 100 MG/10 ML LIQUID UDC GT SCH (08:58)
[2018-10-28] MEDS: CLOPIDOGREL 75 MG TABLET GT SCH (08:59)
[2018-10-28] MEDS: LOSARTAN POTASSIUM 50 MG TABLET GT SCH (08:59)
[2018-10-28] MEDS: AMLODIPINE 5 MG TABLET GT SCH (08:59)
[2018-10-28 11:09] VITALS: BP 151/75
[2018-10-28 15:36] VITALS: BP 129/66
--- NOTE | 2018-10-28 19:35 | NUR ---
Received patient awake in bed, not in any form of distress. IV access on left forearm to saline lock, patent and intact. Patient with G-tube to ongoing feeding, tolerated, no residuals noted, not bloated. With DVT pumps in place. Bed in low position, locked, side rails up x 2 for safety. Will continue to monitor. Noise and lights subdued.
[2018-10-28] MEDS: CEFTRIAXONE 1 G in IV DEXTROSE 5% 50 ML IV SCH (19:48)
[2018-10-28] MEDS: ATORVASTATIN 10 MG TABLET GT SCH (20:06)
[2018-10-28 20:19] VITALS: BP 131/66
[2018-10-29 05:05] VITALS: BP 136/75
[2018-10-29] MEDS: BLOOD SUGAR DIAGNOSTIC 1 EACH STRIP VI SCH ×3 (05:20→17:11)
[2018-10-29] MEDS: PANTOPRAZOLE ORAL SUSPENSION 40 MG SUSPDR.PKT GT SCH (05:20)
[2018-10-29] MEDS: GLUCERNA 1.2 1000ML LIQUID GT PRN (05:21)
[2018-10-29] MEDS: ACETAMINOPHEN 325 MG TABLET GT PRN (05:25)
--- NOTE | 2018-10-29 06:01 | NUR ---
Patient slept intermittently throughout the night, no distress noted. Still with ongoing PEG feeding, tolerated, no residuals noted, not bloated. Afebrile throughout the shift. Attended all needs. Ensured safety and comfort. Noted for possible discharge today.
--- NOTE | 2018-10-29 08:00 | NUR ---
awake but onfused, looks comfortable, on room air, no sob noted, GT in place, Glucerna 1.2 infusing at 45ml/hr- no residual noted, kept head of bed elevated, aspiration precaution observed, GtT flushed with 150ml water as ordered, oral care done, dright arm weakness noted, repositioned and kept comfortable with heels off loaded with pillows, safety measures maintained
[2018-10-29] MEDS: CLOPIDOGREL 75 MG TABLET GT SCH (08:13)
[2018-10-29] MEDS: DOCUSATE SODIUM 100 MG/10 ML LIQUID UDC GT SCH (08:13)
[2018-10-29] MEDS: ASPIRIN 81 MG TAB.CHEW GT SCH (08:13)
[2018-10-29] MEDS: AMLODIPINE 5 MG TABLET GT SCH (08:13)
[2018-10-29 11:10] VITALS: BP 128/72
[2018-10-29] MEDS: INSULIN REGULAR, HUMAN 300 UNIT/3 ML VIAL SQ PRN ×2 (11:42→17:17)
[2018-10-29 12:00] LABS: BASOPHILS % (AUTO) 0.4 % (0.0-2.0); EOSINOPHILS # (AUTO) 0.1 K/uL (0.0-0.7); EOSINOPHILS % (AUTO) 0.5 % (0.0-7.0); HEMOGLOBIN 11.6 g/dL (10.9-14.3); LYMPHOCYTES # (AUTO) 1.2 K/uL (20.0-40.0); LYMPHOCYTES % (AUTO) 10.7 % (20.5-51.5); MEAN CORPUSCULAR HEMOGLOBIN 28.3 uug (24.7-32.8); MEAN CORPUSCULAR HGB CONC 32 g/dL (32.3-35.6); MEAN CORPUSCULAR VOLUME 87.8 fL (75.5-95.3); MONOCYTES # (AUTO) 0.4 K/uL (2.0-10.0); MONOCYTES % (AUTO) 3.7 % (0.0-11.0); NEUTROPHILS # (AUTO) 9.8 K/uL (1.8-8.9); NEUTROPHILS % (AUTO) 84.7 % (38.5-71.5); PLATELET COUNT (AUTO) 162 K/uL (179-408); WHITE BLOOD COUNT (AUTO) 11.5 K/uL (3.8-11.8)
--- NOTE | 2018-10-29 12:00 | NUR ---
incontinent of yellowish stool and urine, washed and repositioned to [id number] with pillows for support and heels off loaded, flushed width 150ml water as ordered, head of bed kept elevated
[2018-10-29 12:19] LABS: CARBON DIOXIDE 33 mmol/L (21-32); CHLORIDE 105 mmol/L (98-107); CREATININE 2.6 mg/dL (0.6-1.3); GLUCOSE 267 mg/dL (74-106); MAGNESIUM 3.9 mg/dL (1.8-2.4); PHOSPHOROUS 2.9 mg/dL (2.5-4.9); POTASSIUM 4.7 mmol/L (3.5-5.1)
[2018-10-29 12:37] LABS: UREA NITROGEN, BLOOD 90 mg/dL (7-18)
--- NOTE | 2018-10-29 13:30 | NUR ---
flushed GT another 100 ml/water to complete 250ml/water 4x day- as new order
[2018-10-29] MEDS: IV 1/2NS 1000 ML 1,000 ML IV PRN (13:32)
--- NOTE | 2018-10-29 14:00 | NUR ---
family here visiting
[2018-10-29 15:18] VITALS: BP 138/78
[2018-10-29] MEDS: CEFTRIAXONE 1 G in IV DEXTROSE 5% 50 ML IV SCH (17:18)
--- NOTE | 2018-10-29 18:48 | NUR ---
no distress noted, family here visiting, tolerated tube fdg well, no residual, aspiration precaution observed, repositioned q 2h with heels off loaded with pillows, head of bed elevated, all needs attended and safety measures maintained
[2018-10-29 20:00] VITALS: BP 161/81
--- NOTE | 2018-10-29 20:00 | NUR ---
pt. is resting in bed alert but confused. Pt. on Room air, no SOB or difficulty breathing noted. IV in left hand 22 gauge intact patent running fluids. HOB elevated. Aspirations precautions observed. G tube in place running feeding at 45 ml/hr. No residual noted. SCD in place bilaterally. Right arm weakness noted. Repositioned with heels off loaded with pillows. Safety measures in place. Will continue to monitor.
[2018-10-29] MEDS: ATORVASTATIN 10 MG TABLET GT SCH (20:26)
[2018-10-29] MEDS: CLONIDINE HCL 0.2 MG TABLET GT PRN (22:05)
[2018-10-30] MEDS: BLOOD SUGAR DIAGNOSTIC 1 EACH STRIP VI SCH ×3 (00:11→12:17)
[2018-10-30] MEDS: INSULIN REGULAR, HUMAN 300 UNIT/3 ML VIAL SQ PRN ×2 (00:28→12:31)
[2018-10-30] MEDS: IV 1/2NS 1000 ML 1,000 ML IV PRN ×2 (00:29→10:46)
[2018-10-30] MEDS: PANTOPRAZOLE ORAL SUSPENSION 40 MG SUSPDR.PKT GT SCH (06:21)
[2018-10-30 06:37] LABS: CARBON DIOXIDE 30 mmol/L (21-32); CHLORIDE 99 mmol/L (98-107); CREATININE 2.3 mg/dL (0.6-1.3); GLUCOSE 110 mg/dL (74-106); MAGNESIUM 3.2 mg/dL (1.8-2.4); PHOSPHOROUS 2.9 mg/dL (2.5-4.9); POTASSIUM 4.5 mmol/L (3.5-5.1); UREA NITROGEN, BLOOD 73 mg/dL (7-18)
[2018-10-30 06:41] LABS: BASOPHILS % (AUTO) 0.3 % (0.0-2.0); EOSINOPHILS # (AUTO) 0.2 K/uL (0.0-0.7); EOSINOPHILS % (AUTO) 1.8 % (0.0-7.0); LYMPHOCYTES # (AUTO) 1.7 K/uL (20.0-40.0); MEAN CORPUSCULAR HGB CONC 33 g/dL (32.3-35.6); MEAN CORPUSCULAR VOLUME 86.8 fL (75.5-95.3); MONOCYTES # (AUTO) 0.6 K/uL (2.0-10.0); MONOCYTES % (AUTO) 5.5 % (0.0-11.0); NEUTROPHILS % (AUTO) 76.4 % (38.5-71.5); PLATELET COUNT (AUTO) 189 K/uL (179-408); RED BLOOD CELL COUNT(AUTO) 3.67 MIL/uL (3.63-4.92); WHITE BLOOD COUNT (AUTO) 10.4 K/uL (3.8-11.8)
--- NOTE | 2018-10-30 06:50 | NUR ---
pt. slept intermittently throughout night. IV in left hand 22 gauge intact patent running fluids. HOB elevated. Aspirations precautions in place. SCD in place bilaterally. Mouth care done. Repositioned with heels off loaded with pillows. Safety measures in place. Will endorse to AM nurse.
[2018-10-30 07:00] LABS: HEMATOCRIT 31.9 % (31.2-41.9); HEMOGLOBIN 10.6 g/dL (10.9-14.3)
--- NOTE | 2018-10-30 07:30 | NUR ---
Patient calm and comfortable laying in bed with no signs of distress. Patient with stable vital signs , all safety devices with in reach.
[2018-10-30] MEDS: AMLODIPINE 5 MG TABLET GT SCH (08:33)
[2018-10-30] MEDS: CLOPIDOGREL 75 MG TABLET GT SCH (08:34)
[2018-10-30] MEDS: DOCUSATE SODIUM 100 MG/10 ML LIQUID UDC GT SCH (08:34)
[2018-10-30] MEDS: ASPIRIN 81 MG TAB.CHEW GT SCH (08:34)
[2018-10-30 11:30] VITALS: BP 145/72
[2018-10-30] MEDS: GLUCERNA 1.2 1000ML LIQUID GT PRN (12:18)
[2018-10-30] MEDS ORDERED: CEPH-569 PO (12:39)
[2018-10-30] MEDS ORDERED: QUET25TA PO (12:39)
[2018-10-30] MEDS ORDERED: DOCUSATE SODIUM 100 MG CAPSULE PO PRN (12:45)
[2018-10-30] MEDS ORDERED: DOCUSATE SODIUM 100 MG/10 ML LIQUID UDC GT PRN (13:30)
[2018-10-30] MEDS ORDERED: QUETIAPINE FUMARATE 25 MG TABLET GT SCH (17:00)
[2018-10-30] MEDS ORDERED: OXCARBAZEPINE 150 MG TABLET GT SCH (17:00)
--- NOTE | 2018-10-30 17:40 | NUR ---
Patient discharged to [facility] with all valuables and belongings; patient has stable vital signs with no signs of distress. Report given to [facility].
[2018-10-30] MEDS ORDERED: CULTURELLE CAPSULE PO SCH (21:00)
[2018-10-31] MEDS ORDERED: FAMOTIDINE 20 MG TABLET GT SCH (09:00)
[2018-10-31] MEDS ORDERED: MAGNESIUM OXIDE 400 MG TABLET PO SCH (09:00)
[2018-10-31] MEDS ORDERED: SERTRALINE HCL 50 MG TABLET GT SCH (09:00)
[2018-10-31] MEDS ORDERED: CLOPIDOGREL 75 MG TABLET GT SCH (09:00)
== END 2018-10-30 17:40 | DRG 91 ==
LOC: ER 14:01 → TELE3 17:57 → MEDSURG3 10-25 08:30
PROVIDERS: ADMIT Student in an Organized Health Care Education/Training Program; ATTEND Student in an Organized Health Care Education/Training Program
PROC: 0DH67UZ Insertion of Feeding Device into Stomach, Via Natural or Artificial Opening (ICD-10-PCS; principal; 2018-10-24)
PROC: 0DH63UZ Insertion of Feeding Device into Stomach, Percutaneous Approach (ICD-10-PCS; 2018-10-26)
PROC: 3E0G76Z Introduction of Nutritional Substance into Upper GI, Via Natural or Artificial Opening (ICD-10-PCS; 2018-10-28)
DX: G83.21 Monoplegia of upper limb affecting right dominant side (principal); N17.0 Acute kidney failure with tubular necrosis; D68.59 Other primary thrombophilia; Z68.1 Body mass index [BMI] 19.9 or less, adult; N39.0 Urinary tract infection, site not specified; E87.0 Hyperosmolality and hypernatremia; G93.40 Encephalopathy, unspecified; M24.541 Contracture, right hand; R40.2142 Coma scale, eyes open, spontaneous, at arrival to emergency department; R40.2362 Coma scale, best motor response, obeys commands, at arrival to emergency department; R40.2252 Coma scale, best verbal response, oriented, at arrival to emergency department; R29.705 NIHSS score 5; D69.6 Thrombocytopenia, unspecified; Z74.09 Other reduced mobility; Z91.81 History of falling; Z86.73 Personal history of transient ischemic attack (TIA), and cerebral infarction without residual deficits; E11.22 Type 2 diabetes mellitus with diabetic chronic kidney disease; I12.9 Hypertensive chronic kidney disease with stage 1 through stage 4 chronic kidney disease, or unspecified chronic kidney disease; N18.9 Chronic kidney disease, unspecified; R62.7 Adult failure to thrive; R13.10 Dysphagia, unspecified; F03.90 Unspecified dementia, unspecified severity, without behavioral disturbance, psychotic disturbance, mood disturbance, and anxiety; F41.9 Anxiety disorder, unspecified; I25.10 Atherosclerotic heart disease of native coronary artery without angina pectoris; Z79.02 Long term (current) use of antithrombotics/antiplatelets; Z79.899 Other long term (current) drug therapy; M85.80 Other specified disorders of bone density and structure, unspecified site; E04.2 Nontoxic multinodular goiter; F32.9 Major depressive disorder, single episode, unspecified; M19.019 Primary osteoarthritis, unspecified shoulder
CPT/HCPCS: 36415; 70030-TC; 70450; 71045; 73030; 73060; 73200; 83690; 83735; 84100; 84443; 85025; 85610; 85730; 87077; 87086; 92526; 92610; 93005; 93307; 93880; 97110; 97112; 97165; 97530; 97535; A4217; A4663; C1758; G0378; J0696; J1815; J3490; J7030; J7050; J7060